=== PATIENT | female | born 1985 | race Caucasian/White ===

== ENCOUNTER 2018-07-03 10:34 | Day surgery (SDC) | payer BC, MEDICAID, SELFPAY ==
[2018-06-27 10:37] VITALS: BMI 24.7
[2018-07-03] VITALS (7 sets, daily range): BP systolic 108–116; BP diastolic 69–87; PULSE 70–84; RESP 16; TEMP 36–36.7; O2SAT 94–100; BMI 25.1
--- NOTE | 2018-07-03 10:42 | EKG12_ITS ---
Test Reason : PRE-OP Blood Pressure : / mmHG Vent. Rate : 069 BPM Atrial Rate : 069 BPM P-R Int : 152 ms QRS Dur : 084 ms QT Int : 404 ms P-R-T Axes : 058 061 033 degrees QTc Int : 432 ms Normal sinus rhythm Normal ECG No previous ECGs available Confirmed by MANE EGAN ([id number]), web content editor BOBY JEREZ ([id number]) on 07/08/2018 2:42:08 PM Referred By: Kwaku Gayle Confirmed By:JENNIFER EGAN
--- NOTE | 2018-07-03 11:45 | PCM.DC.GS ---
Discharge Diet: Light diet - advance as tolerated - if you have questions about your diet instructions, please talk to you doctor. Discharge Activity: May Not Drive - for 3-5 days or while taking narcotic pain medicine. May shower in (days): 1 Lifting Restrictions: 10 pounds Call your doctor if your incision/area has: Continuous Slow Oozing, Sudden Increased Bleeding, Increased Pain/ Swelling, Increased Redness, Foul Smelling Discharge Call your doctor if you observe: Fever of 101 or Higher Suture Line Care: Avoid Pulling/Pushing, Avoid Pinching/Bending Additional Dressing/Incision Instructions:: Change or remove dressing in 4 days. Leave steri-strips in place for 1 week. Allergies/Adverse Reactions: Allergies lamotrigine [From Lamictal] Allergy (Unknown, Verified 07/01/18 08:13) Unknown Medications to take at Discharge ibuprofen 600 mg tablet 600 mg PO BID PRN tab 06/27/18 Hydrocodone Bitart/Apap 5-325 [[place] 5MG-325MG] 1 tablet PO Q4H PRN PRN 3 Days #10 tablet 07/03/18 The following prescriptions were given: Hydrocodone Bitart/Apap 5-325 [[place] 5MG-325MG] 1 tablet PO Q4H PRN PRN 3 Days #10 tablet PRN Reason: Pain Primary Care Physician: Renae Taylor NP-C [Primary Care Provider] - Test Results: Test results from this visit will be discussed in further detail at your follow-up appointment, if applicable. Please Follow Up With: Kwaku Gayle MD - [phone] When: Call to make an appointment to be seen in about 10 days.
[2018-07-03] MEDS: Cefazolin 2 GM in 0.9% Normal Saline 100 ML IV (11:56)
--- NOTE | 2018-07-03 12:10 | RAD_ITS ---
PROCEDURE: FLUOROSCOPY ASSISTANCE DATE OF EXAMINATION: 07/03/2018 INDICATION: Female, 33 years old. Intraoperative cholangiogram. FLUOROSCOPY TIME (if supplied): (0:06) minutes/seconds. 29 images. RADIATION DOSAGE (If Supplied By Facility): Please see attached dosage report. IMPRESSION/FINDINGS: Images depict filling of the biliary tree via the cystic duct after cholecystectomy. There is no visible retained calculus. Slender duct through the sphincter, with normal spillage into the small bowel. Fluoroscopic images submitted to PACS for procedural/postsurgical documentation Please see procedural/surgical note Radiologist not present at the time of examination Electronically Signed: Donavan Magaña MD at 15:25 EDT Tel , Service support , RAD/Cholangiogram/ O R,Initial
--- NOTE | 2018-07-03 12:30 | GALL_PTH ---
PATIENT: ANUJA CASTILLO [place] [facility] [place][id number] AGE/SX: 33/F ROOM: RE07/03/[address]: Dr. Kwaku Gayle MD : [id number] BED: DIS: 07/03/2018 SPEC #: [id number] RECD: 07/03/18 16:17 STATUS: YANG PABLO #: [id number] BARBARA: 07/03/18 12:[address]: Kwaku Gayle DEPT: SURGICAL PATHOLOGY RECD BY: Pelon Mukherjee ENTERED: 07/04/18 11:17 SP TYPE: STEPHANIE RAMOS DR: Renae Taylor, NEHEMIAS Tissues: Gallbladder, NOS Procedures: Surgery Specimen Level III HEADER OPERATION: Laparoscopic cholecystectomy with IOC PRE-OP DIAGNOSIS: Calculus of gallbladder, chronic cholecystitis without obstruction, cholelithiasis TISSUE SUBMITTED: Gallbladder MICROSCOPIC DIAGNOSIS Gallbladder, cholecystectomy: Mild chronic cholecystitis. No stones are identified in the container or in the gallbladder. COLETTE:carly 07/05/18 MICROSCOPIC DESCRIPTION Slides are reviewed. GROSS DESCRIPTION Received is one container labeled with the patient's name and designated gallbladder. The specimen consists of a gallbladder measuring 7 cm in length and 3.5 cm in diameter. The external surface is pink-mccarthy, smooth and glistening for the most part. Focally it is granular, hemorrhagic and contains cautery artifact. The gallbladder contains green-yellow mucoid bile and a small amount of sludge material. No stones are identified in the container or in the gallbladder. The mucosa is bile-stained and without any mass lesions. The gallbladder wall measures 0.1 cm in thickness. Special Loan Officer sections from the gallbladder and the cystic duct are submitted in one cassette. / COLETTE:carly 07/04/18 TC:3 CPT: 70748
[2018-07-03] MEDS: Bupivacaine 0.5% PF 10 ML VIAL (13:15)
--- NOTE | 2018-07-03 13:24 | PCM.OPRPT ---
Problem List (1) Cholelithiasis with chronic cholecystitis Status: Chronic Qualifiers: Cholelithiasis location: gallbladder Biliary obstruction: without biliary obstruction Qualified Code(s): K80.10 - Calculus of gallbladder with chronic cholecystitis without obstruction Report of Operation Date of Procedure: 07/03/18 Pre-Operative Diagnosis: Chronic cholecystitis cholelithiasis Post-Operative Diagnosis: Same Surgery/Procedure Performed:: Laparoscopic cholecystectomy with cholangiograms Description of Surgical Findings:: Timeout and informed consent was obtained. 33-year-old female was taken the operating placed when table underwent general endotracheal intubation anesthesia. Ancef 2 g were given intravenously preoperatively. The abdomen sterilely prepped and draped. 0.5% Marcaine was used as local anesthetic. Throughout the procedure a total of 30 cc was used. Skin sites were pre-anesthetized. The patient had a previous infraumbilical incision at the umbilicus. The skin scar was elliptically completely excised inspected and after inspection was discarded his skin scar. Holding sutures were placed in the fascia the fascia was elevated sharp dissection carried down through the fascia the peritoneum was directly identified direct access was gained through the peritoneum and then a 10 window trocar was inserted. The abdomen was insufflated with CO2 to a pressure of 10 mmHg pressure. 5-minute trochars were placed in the epigastrium mid abdomen and right upper quadrant. Inspection revealed a very small right inguinal hernia. There were adhesions of omentum to the gallbladder. These had to be dissected free with electrocautery. Then the gallbladder was distracted and blunt dissection was sent to the infundibulum until clearly the critical view was achieved. The cystic artery was clipped proximally and distally with him a lot closed by transecting it. Hemoclips were placed on the cystic duct stump incision in the cystic duct and through a 14-gauge Angiocath and cholangiogram catheter was inserted. Fluoroscopically controlled clench grams were obtained demonstrating normal ductal anatomy and free flow into the small bowel. The claims Faustino cath was removed and 2 hemoclips were placed on the cystic duct stump prior to transecting it. The gallbladder was then dissected free from the liver bed. Careful attention to hemostasis was achieved. Fibrillar was then placed in the base of the liver bed to further assure hemostasis. The gallbladder was placed in a retrieval bag and exited at the umbilicus. The right upper quadrant was irrigated and aspirated free of excess fluid. The liver bed was noted to be hemostatic. The cystic duct clips intact nicely. The remaining trochars removed under visualization. The fascia at the umbilicus was approximated with interrupted 0 Vicryl [id number] suture. Skin edges were approximated interrupted 4-0 Monocryl subdermal stitches. Steri-Strips Telfa and OpSite dressings applied. Sponge and instrument and needle counts were reported to the surgeon for correct. Specimen gallbladder. Drains none. Blood loss minimal. The patient was taken to the recovery area in satisfactory condition without apparent complication. Kwaku Gayle M.D., F.A.C.S. Type of Anesthesia:: General Anesthesiologist: Maninder Ruano
--- NOTE | 2018-07-03 13:28 | OP.PCM_ITS ---
Problem List (1) Cholelithiasis with chronic cholecystitis Status: Chronic Qualifiers: Cholelithiasis location: gallbladder Biliary obstruction: without biliary obstruction Qualified Code(s): K80.10 - Calculus of gallbladder with chronic cholecystitis without obstruction Report of Operation Date of Procedure: 07/03/18 Pre-Operative Diagnosis: Chronic cholecystitis cholelithiasis Post-Operative Diagnosis: Same Surgery/Procedure Performed:: Laparoscopic cholecystectomy with cholangiograms Description of Surgical Findings:: Timeout and informed consent was obtained. 33-year-old female was taken the operating placed when table underwent general endotracheal intubation anesthesia. Ancef 2 g were given intravenously preoperatively. The abdomen sterilely prepped and draped. 0.5% Marcaine was used as local anesthetic. Throughout the procedure a total of 30 cc was used. Skin sites were pre-anes thetized. The patient had a previous infraumbilical incision at the umbilicus. The skin scar was elliptically completely excised inspected and after inspection was discarded his skin scar. Holding sutures were placed in the fascia the fascia was elevated sharp dissection carried down through the fascia the peritoneum was directly identified direct access was gained through the peritoneum and then a 10 window trocar was inserted. The abdomen was insufflated with CO2 to a pressure of 10 mmHg pressure. 5-minute trochars were placed in the epigastrium mid abdomen and right upper quadrant. Inspection revealed a very small right inguinal hernia. There were adhesions of omentum to the gallbladder. These had to be dissected free with electrocautery. Then the gallbladder was distracted and blunt dissection was sent to the infundibulum until clearly the critical view was achieved. The cystic artery was clipped proximally and distally with him a lot closed by transecting it. Hemoclips were placed on the cystic duct stump incision in the cystic duct and through a 14- gauge Angiocath and cholangiogram catheter was inserted. Fluoroscopically controlled clench grams were obtained demonstrating normal ductal anatomy and free flow into the small bowel. The claims Faustino cath was removed and 2 hemoclips were placed on the cystic duct stump prior to transecting it. The gallbladder was then dissected free from the liver bed. Careful attention to hemostasis was achieved. Fibrillar was then placed in the base of the liver bed to further assure hemostasis. The gallbladder was placed in a retrieval bag and exited at the umbilicus. The right upper quadrant was irrigated and aspirated free of excess fluid. The liver bed was noted to be hemostatic. The cystic duct clips intact nicely. The remaining trochars removed under visualization. The fascia at the umbilicus was approximated with interrupted 0 Vicryl [id number] suture. Skin edges were approximated interrupted 4-0 Monocryl subdermal stitches. Steri-Strips Telfa and OpSite dressings applied. Sponge and instrument and needle counts were reported to the surgeon for correct. Specimen gallbladder. Drains none. Blood loss minimal. The patient was taken to the recovery area in satisfactory condition without apparent complication. Kwaku Gayle M.D., F.A.C.S. Type of Anesthesia:: General Anesthesiologist: Maninder Ruano
[2018-07-03] MEDS: HYDROcodone Bitartrate/Apap 5/325 Tablet PO (14:57)
[2018-07-03] MEDS: Ondansetron 4 MG/2 ML Vial IV (16:38)
[2018-07-06 08:52] LABS: Fats, Neutral Normal (.); Fats, Total Normal (.)
== END 2018-07-03 16:49 | disposition home or self-care (01) ==
LOC: SDC 10:37 → AC 10:37
PROVIDERS: Family Provider Nurse Practitioner Family; PCP Nurse Practitioner Family; Referring Provider Surgery; Visit Provider Surgery
PROC: (CPT 47610; principal; 2018-07-03 12:10)
DX: K80.10 Calculus of gallbladder with chronic cholecystitis without obstruction (principal); K58.9 Irritable bowel syndrome, unspecified; F17.210 Nicotine dependence, cigarettes, uncomplicated
CPT/HCPCS: 47563; 74300; 76000; 82705; 87177; 87209; 87506; 88304; 93005; J7120; A4216; J2405

== ENCOUNTER → 2018-07-18 09:25 | Outpatient (CLI) | payer BC, MEDICAID, SELFPAY ==
--- NOTE | 2018-07-18 09:29 | NM_ITS ---
We are attempting to reach an attending provider to discuss findings. An addendum with communication details will be sent when the communication is complete. CLINICAL: 33-year-old female with history of recent cholecystectomy with postoperative pain and suspected bile leak. RADIONUCLIDE HEPATOBILIARY SCINTIGRAPHY COMPARISON: None available FINDINGS: Following the intravenous administration of 5.6 mCi of 99m Tc Mebrofenin, hepatobiliary images reveal: 1. Relatively prompt and homogeneous radiopharmaceutical concentration is noted by a normal sized liver. No parenchymal defects are identified. 2. Gallbladder activity is not identified during 60 minutes of sequential imaging commensurate with known history of prior cholecystectomy. 3. Small intestinal tract is observed at 11-12 minutes post radiopharmaceutical administration. 4. Washout of the radiopharmaceutical by the hepatic parenchyma appears qualitatively normal. 5. There is no evidence of a visualized bile leak identified during 60 minutes of sequential imaging. 6. duodenal-gastric reflux is demonstrated at approximately 12 minutes following tracer injection. NM/Hepatobilliary Imaging IMPRESSION: 1. Nonvisualization of the gallbladder is consistent with prior cholecystectomy. 2. There is no scintigraphic evidence of bile leak as defined above. 3. Duodenal-gastric reflux is defined at approximately 12 minutes following tracer injection and appears sustained during the course of remaining image acquisition. Electronically Signed: Donavan Pizarro DO at 11:11 EDT Tel , Service support ,
--- OUTSIDE RECORDS SUMMARY | 2018-07-18 10:02 | XMS RPT_ITS | CCD ---
:1985 External Reference #:[id number] Author Organization [facility] Care Team Providers Name Role Phone Unavailable Unavailable Unavailable Allergies Reported Allergen Reaction(s) Severity Date of Onset Location lamoTRIgine Rash 03-30-2010 - [facility] (57230) lamoTRIgine Translations: [facility] [ [facility]] [facility] Repository Mirtazapine 06-30-2009 - [facility] (00351) Medications Medication Name Sig Date Prescriber Location Albuterol albuterol 108 (90 06-06-2018 Historical Provider [facility] Base) MCG/ACT Aero (85947) Soln inhaler INHALE 1 TO 2 PUFFS EVERY 4 HOURS NEEDED 0 06/06/2018 Active albuterol 108 (90 Base) MCG/ACT 06-06-2018 Historical Provider [facility] (23620) Aero Soln inhaler INHALE 1 TO 2 PUFFS EVERY 4 HOURS NEEDED 0 06/06/2018 Active Azithromycin azithromycin 250 MG Tab tablet TAKE 2 06-06-2018 [facility] (44593) TABLETS by mouth NOW, THEN 1 TABLET once a day FOR 4 DAYS 0 06/06/2018 Active azithromycin 250 MG Tab tablet TAKE 2 TABLETS by 06-06-2018 [facility] (33667) mouth NOW, THEN 1 TABLET once a day FOR 4 DAYS 0 06/06/2018 Active benzonatate benzonatate 200 MG Cap capsule TAKE 1 06-06-2018 [facility] (35367) CAPSULE BY MOUTH THREE TIMES DAILY NEEDED for cough 0 06/06/2018 Active benzonatate 200 MG Cap capsule TAKE 1 CAPSULE BY 06-06-2018 [facility] (01994) MOUTH THREE TIMES DAILY NEEDED for cough 0 06/06/2018 Active methylPREDNISolone methylPREDNIsolone 4 MG 06-07-2018 Nekst Tab Therapy Pack tablet [place] (97256) Take as directed PO 21 tablet 0 06/07/2018 Active methylPREDNIsolone 4 MG Tab Therapy 06-07-2018 [facility] (34730) Pack tablet Take as directed PO 21 tablet 0 06/07/2018 Active Problems Category Problem Name Status Date Location Chronic obstructive pulmonary Bronchitis Active 06-07-2018 [facility] disease and bronchiectasis (54930) Viral infection Viral disease Active 06-08-2018 [facility] (27789) Results Result Name Value Range Unit Interpretation Flag Date Location auto diff on 2018-06-12 Basophils #/vol (Bld) 0.1 0.0-0.2 E3/mcL Normal 06-12-2018 [facility] (23619) Comment: Order Comment: Order Added by Discern Expert. Performed By: #### [id number] #### [facility] [address] [place] [address] Basophils/100 WBC (Bld) 0.8 0.0-2.0 % Normal 06-12-2018 [facility] (40191) Comment: Order Comment: Order Added by Discern Expert. Performed By: #### [id number] #### [facility] [address] Eos Absolute 0.1 0.0-0.7 E3/mcL Normal 06-12-2018 [facility] (72162) Comment: Order Comment: Order Added by Discern Expert. Performed By: #### [id number] #### ELDER RemHemo [address] [place] [address] Eosinophils/100 WBC (Bld) 1.0 0.0-11.0 % Normal 06-12-2018 [facility] (79222) Comment: Order Comment: Order Added by Discern Expert. Performed By: #### [id number] #### ELDER RemHemo [address] [place] [address] 28414 Lymphocytes #/vol (Bld) 6.1 1.2-3.4 E3/mcL High 06-12-2018 [facility] (61999) Comment: Order Comment: Order Added by Discern Expert. Performed By: #### [id number] #### ELDER RemHemo [address] [place] [address] 03932 Lymphocytes/100 WBC (Bld) 43.4 20.0-55.0 % Normal 06-12-2018 [facility] (07917) Comment: Order Comment: Order Added by Discern Expert. Performed By: #### [id number] #### ELDER AranaHemo [address] [place] [address] [place]fe Absolute 0.7 0.0-0.7 E3/mcL Normal 06-12-2018 [facility] (60268) Comment: Order Comment: Order Added by Discern Expert. Performed By: #### [id number] #### [facility] [place] [id number] Monocytes/100 WBC (Bld) 5.3 0.0-10.0 % Normal 06-12-2018 [facility] (17982) Comment: Order Comment: Order Added by Discern Expert. Performed By: #### [id number] #### [facility] [place] [address] Neutro Absolute 7.0 1.4-6.5 E3/mcL High 06-12-2018 [facility] (84442) Comment: Order Comment: Order Added by Discern Expert. Performed By: #### [id number] #### [facility]ER [facility] [address] [place] [address] Neutro Auto 49.5 37.0-75.0 % Normal 06-12-2018 [facility] (22717) Comment: Order Comment: Order Added by Discern Expert. Performed By: #### [id number] #### ELDER Andersono [address] [place], [place] [id number] us abdomen, limited on 2018-06-18 US Abdomen, Exam Date/Time: Normal 06-18-2018 [facility] Limited 06/18/2018 08:46 [facility] Reason for Exam: ([id number]) RUQ PAIN ATTN: GB;Abdominal pain Report STUDY: US Abdomen, Limited; 06/18/2018 8:46 am INDICATION: Abdominal pain. COMPARISON: None. ACCESSION NUMBER(S): [id number] ORDERING CLINICIAN: Renae Taylor TECHNIQUE: Grayscale and color Doppler ultrasound evaluation of the right upper quadrant. FINDINGS: LIVER: Normal size. Normal echogenicity and contour. No focal abnormality. GALLBLADDER: Gallbladder is distended. There are mobile gallstones. No wall thickening or pericholecystic fluid. No focal tenderness is reported during scanning directly over the gallbladder. BILIARY TREE: No intra- or extrahepatic biliary dilatation. The extrahepatic bile duct measures 3 mm. PANCREAS: The visualized head and neck are within normal limits. The body and tail are obscured by shadowing from bowel gas. RIGHT KIDNEY: Normal size, no hydronephrosis. PERITONEUM: No ascites. IMPRESSION: Exam Date/Time: 06/18/2018 08:46 EDT Report Gallstones. No intra or extrahepatic biliary ductal dilatation. FINAL REPORT Dictated: 06/18/2018 10:05 am Elier Munoz MD Signed (Electronic Signature): 06/18/2018 10:05 am Signed by: Elier Munoz MD Technologist: ANU egfr on 2018-06-12 GFR/1.73 sq M predicted >60 mL/min/{1.73_m2} Normal 06-12-2018 [facility] among non-blacks MDRD [facility] (61980) vol rate/area (S/P/Bld) Comment: Order Comment: Order added by Discern Expert. Performed By: #### [id number] #### ELDER RemChem [address] [place] [id number] d-dimer on 2018-06-12 D-Dimer <215.00 <=500.00 Normal 06-12-2018 [facility] (67094) Comment: Result Comment: When the concentration of D-dimer is below the cotton weigher operator's cutoff, 500 ng/mL FEU, it may be possible to exclude the diagnosis of DVT and PE in conjunction with a clinical pretest probability assessment. Performed By: #### [id number] #### ELDER RemHemo [address] [place] [id number] cta chest on 2018-06-12 CTA Chest Exam Date/Time: Normal 06-12-2018 [facility] 06/12/2018 20:44 EDT Health System (93055) Reason for Exam: Pulmonary Emboli (PE) Report STUDY: CTA Chest; 06/12/2018 8:44 pm INDICATION: Pulmonary Emboli (PE). COMPARISON: None. ACCESSION NUMBER(S): [id number] ORDERING CLINICIAN: Quentin Rivas TECHNIQUE: Helical data acquisition of the chest was obtained contrast volume:without IV contrast material/ Optiray 350/Isovue 370. Images were reformatted in axial, coronal, and sagittal planes. FINDINGS: POTENTIAL LIMITATIONS OF THE STUDY:None HEART AND VESSELS: There is no pulmonary embolus. The heart is normal size and configuration. There is no evidence of ventricular heart strain. There is no pericardial effusion. The aorta is within normal limits. MEDIASTINUM AND CASPER, LOWER NECK AND AXILLA: The visualized thyroid gland is within normal limits. No evidence of thoracic lymphadenopathy by CT criteria. Esophagus appears within normal limits as seen. LUNGS AND AIRWAYS: The trachea and central airways are patent. No endobronchial lesion. Lungs are clear. There is a calcified granuloma in the left upper lobe. UPPER ABDOMEN: The visualized subdiaphragmatic structures demonstrate no remarkable findings. CHEST WALL AND OSSEOUS STRUCTURES: There are no suspicious osseous lesions. Multilevel degenerative changes are present IMPRESSION: Exam Date/Time: 06/12/2018 20:44 EDT Report No pulmonary embolus. No focal airspace disease. FINAL REPORT Dictated: 06/12/2018 8:46 pm Nathaniel Lunsford MD Signed (Electronic Signature): 06/12/2018 8:46 pm Signed by: Nathaniel Lunsford MD Technologist: NATALYA cbc w/ auto diff on 2018-06-12 Erythrocyte distribution 13.2 11.5-14.5 % Normal 06-12-2018 [facility] width Ratio (RBC) Health System (85938) Comment: Performed By: #### [id number] #### ELEDR RemHemo [address] [place] [id number] Hematocrit Volume Fraction 41.5 36.0-48.0 % Normal 06-12-2018 [facility] (69127) Comment: Performed By: #### [id number] #### ELDER RemHemo [address] [place] [address] Hemoglobin mass conc 14.2 12.0-16.0 G/DL Normal 06-12-2018 [facility] (09877) Comment: Performed By: #### [id number] #### ELDER RemHemo [address] [place] [address] MCH Entitic mass (RBC) 31.2 27.0-31.0 pg High 06-12-2018 [facility] (55066) Comment: Performed By: #### [id number] #### ELDER RemHemo [address] [place] [address] MCHC mass conc (RBC) 34.3 33.0-37.0 G/DL Normal 06-12-2018 [facility] (51748) Comment: Performed By: #### [id number] #### ELDER YasmeenHemo [address] [place] [id number] MCV Entitic volume 90.8 78.0-100.0 fL Normal 06-12-2018 [facility] (RBC) System (85468) Comment: Performed By: #### [id number] #### ELDER RemHemo [address] [place] [id number] Platelet mean volume 8.5 7.4-11.0 fL Normal 06-12-2018 [facility] Entitic volume (Bld) System (91391) Comment: Performed By: #### [id number] #### ELDER YasmeenHemo [facility] [place] [address] Platelets #/vol (Bld) 232 130-400 E3/mcL Normal 06-12-2018 [facility] (49059) Comment: Performed By: #### [id number] #### ELDER RemHemo [address] [place] [id number] RBC #/vol (Bld) 4.57 3.90-5.40 E6/mcL Normal 06-12-2018 [facility] (25858) Comment: Performed By: #### [id number] #### ELDER RemHemo [address] [place] [address] WBC #/vol (Bld) 14.1 3.6-11.0 E3/mcL High 06-12-2018 [facility] (49824) Comment: Performed By: #### [id number] #### ELDER RemHemo [address] [place] [address] bmp on 2018-06-12 Anion gap molar conc 10 10-20 mEq/L Normal 06-12-2018 [facility] (88626) Comment: Performed By: #### [id number] #### ELDER RemChem [address] [place] [id number] Calcium mass conc 9.3 8.6-10.3 mg/dL Normal 06-12-2018 [facility] (98198) Comment: Performed By: #### [id number] #### ELDER [facility] [address] [place] [address] Chloride molar conc 105 98-107 mEq/L Normal 06-12-2018 [facility] (19535) Comment: Performed By: #### [id number] #### ELDER [facility] [address] [place] [address] CO2 molar conc 27.0 21.0-32.0 mEq/L Normal 06-12-2018 [facility] (63984) Comment: Performed By: #### [id number] #### ELDER [facility] [address] [place] [address] Creatinine mass conc 0.9 0.5-1.1 mg/dL Normal 06-12-2018 [facility] (50304) Comment: Performed By: #### [id number] #### ELDER [facility] [address] [place] [address] Glucose mass conc 92 70-99 mg/dL Normal 06-12-2018 [facility] (28242) Comment: Performed By: #### [id number] #### ELDER [facility] [address] [place] [address] Potassium molar conc 3.4 3.5-5.3 mEq/L Low 06-12-2018 [facility] (10064) Comment: Performed By: #### [id number] #### ELDER [facility] [address] [place] [address] Sodium molar conc 139 136-145 mEq/L Normal 06-12-2018 [facility] (61877) Comment: Performed By: #### [id number] #### ELDER [facility] [address] [place] [address] Urea nitrogen mass conc 17 6-23 mg/dL Normal 06-12-2018 [facility] (91066) Comment: Performed By: #### [id number] #### ELDER [facility] [address] [place] [address] Urea nitrogen/Creatinine mass 18.9 5.4-30.0 ratio Normal 06-12-2018 [facility] (54465) Comment: Performed By: #### [id number] #### ELDER [facility] [address] [place] [address] rapid flu a on 2018-06-08 INFLUENZA A NEGATIVE NEGATIVE Normal 06-08-2018 [facility] (14388) Comment: Performed By: #### RFLUAB #### Testing performed at [address] [address] INFLUENZA B NEGATIVE NEGATIVE Normal 06-08-2018 [facility] (93925) Comment: Result Comment: TESTING PERFORMED BY SAROJ Performed By: #### RFLUAB #### Testing performed at [address] [address] No panel information on 2018-06-08 FLUBV Ag IA Ql (Unsp spec) NEGATIVE NEGATIVE 06-08-2018 [facility] (77374) Comment: TESTING PERFORMED BY SAROJ INFLUENZA A NEGATIVE NEGATIVE 06-08-2018 [facility] (64654) xr chest pa and lateral on 2018-06-07 XR CHEST PA AND EXAM: XR CHEST PA AND LATERAL Normal 06-07-2018 [facility] LATERAL REASON FOR EXAM: Female, 33 years, pain with breathing. Hospital (87485) TECHNIQUE: PA and lateral views of the chest are performed. COMPARISON: None. FINDINGS: The lungs are expanded and clear. Normal pleura. There is a small calcified nodule in the retrosternal space measuring 8 mm. Normal size heart. Normal mediastinum and casper. Normal visualized pulmonary arteries. Normal visualized aortic arch and descending thoracic aorta. Normal visualized thoracic spine. Normal visualized ribs, clavicles, and shoulders. There is no demonstrated abnormality of the visualized soft tissue structures of the upper abdomen. IMPRESSION: 8 mm noncalcified nodule in the retrosternal space. No additional abnormality. No panel information on 2018-06-07 User, Interfaces - 06/07/2018 8:26 PM EDT EXAM: XR CHEST PA AND LATERAL 06-07-2018 [facility] (52332) REASON FOR EXAM: Female, 33 years, pain with breathing. TECHNIQUE: PA and lateral views of the chest are performed. COMPARISON: None. FINDINGS: The lungs are expanded and clear. Normal pleura. There is a small calcified nodule in the retrosternal space measuring 8 mm. Normal size heart. Normal mediastinum and casper. Normal visualized pulmonary arteries. Normal visualized aortic arch and descending thoracic aorta. Normal visualized thoracic spine. Normal visualized ribs, clavicles, and shoulders. There is no demonstrated abnormality of the visualized soft tissue structures of the upper abdomen. IMPRESSION IMPRESSION: 8 mm noncalcified nodule in the retrosternal space. No additional abnormality. EXAM: XR CHEST PA AND LATERAL REASON FOR 06-07-2018 [facility] (71526) EXAM: Female, 33 years, pain with breathing. TECHNIQUE: PA and lateral views of the chest are performed. COMPARISON: None. FINDINGS: The lungs are expanded and clear. Normal pleura. There is a small calcified nodule in the retrosternal space measuring 8 mm. Normal size heart. Normal mediastinum and casper. Normal visualized pulmonary arteries. Normal visualized aortic arch and descending thoracic aorta. Normal visualized thoracic spine. Normal visualized ribs, clavicles, and shoulders. There is no demonstrated abnormality of the visualized soft tissue structures of the upper abdomen. IMPRESSION: 8 mm noncalcified nodule in the 06-07-2018 [facility] (51136) retrosternal space. No additional abnormality. Vital Signs Vital Sign Description Value / Unit Date Location The following section is limited to 5 entries per type and includes entries from the following time range: 20180608 - 20180608. Body Temperature 98.71 [degF] 06-08-2018 [facility] (56100) Pulse (Heart Rate) 100 /min 06-08-2018 [facility] (14655) Pulse Oximetry 96 % 06-08-2018 [facility] (32475) Respiratory Rate 14 /min 06-08-2018 [facility] (72506) Encounters Date Type Reason Provider Location 06-12-2018 - Emergency [facility] Facility:[facility] 06-12-2018 department [facility] visit Farooqblanco Trivedi 06-08-2018 - [facility] patient [facility] Hospital (65509) visit 06-08-2018 - [facility] patient Emergency visit Department 06-07-2018 - Letter encounter Provider [facility] 06-07-2018 [facility] 06-24-2018 - Patient encounter Renae August Facility:[place] 06-25-2018 procedure [facility] 06-18-2018 - Patient encounter [facility] Facility:[facility] 06-19-2018 procedure [facility] 06-18-2018 Patient encounter Facility:9509 procedure 06-12-2018 Patient encounter Facility:9509 procedure 06-11-2018 - Patient encounter Renae [place] Facility:[place] 06-12-2018 procedure [facility] 06-07-2018 Patient encounter BENJAMIN Doming[facility] procedure [facility] (99477) 06-07-2018 - Patient encounter Bronchitis [facility] 06-07-2018 procedure BENJAMIN Doming[facility] [place] Comment: Arrived Procedures Procedure Name Date Provider Location INFLUENZA A AND B, [facility] of chest, 06-08-[address] [facility] (22285) combined PA and lateral Plan of Treatment Plan Description Date Location INFLUENZA VACCINE INFLUENZA VACCINE 11-03-2018 - [facility] (90892) (Season Ended) (Season Ended) 2018 PAP SMEAR DISCUSSION PAP SMEAR DISCUSSION 2006 - [facility] (12575) 2006 TDAP (ADULT) TDAP (ADULT) 01-23-2004 - [facility] (49140) 01-23-2004 TETANUS TETANUS 2003 - [facility] (48297) 2003 HIV SCREENING HIV SCREENING DISCUSSION 1998 - [facility] (77980) DISCUSSION 1998 The following information is from the original human readable content Health Maintenance Due Date Last Done Comments HIV SCREENING DISCUSSION 1998 TETANUS 2003 TDAP (ADULT) 01/23/2004 PAP SMEAR DISCUSSION 2006 INFLUENZA VACCINE (Season Ended) 2018 Health Maintenance Due Date Last Done Comments HIV SCREENING DISCUSSION 1998 TETANUS 2003 TDAP (ADULT) 01/23/2004 PAP SMEAR DISCUSSION 2006 INFLUENZA VACCINE (Season Ended) 2018 Payers Payer Name Policy Number Location LEENA xxxxxxxxxxxx CHIKA CASTILLO [facility] (48038) ANTHEM HMO PPO POS [id number] [facility] (22512) [employer]ES[employer] [id number] [facility] (18108) CARESOURCE xxxxxxxxxxx Chika Castillo [id number] [facility] (53605) [id number] [facility] (63470) [id number] [facility] (66366) [id number] [facility] (93096) [id number] [facility] (04399) [id number] [facility] (49049) [id number] [facility] (99553) [id number] [facility] (82026) [id number] [facility] (44210) The following information is from the original human readable content Payer Benefit Plan / Group Subscriber ID Effective Dates Phone Address Type LEENA ANTHEM HMO PPO POS xxxxxxxxxxxx 2018-Present [employer]ESOURCE CARESOURCE xxxxxxxxxxx 2018-Present Payer Benefit Plan / Group Subscriber ID Effective Dates Phone Address Type LEENA STERN HMO PPO POS xxxxxxxxxxxx 2018-Present [employer]OURCE xxxxxxxxxxx 2018-Present Payer Benefit Plan / Group Subscriber ID Effective Dates Phone Address Type ANTHJUAN MANUEL STERN HMO PPO POS xxxxxxxxxxxx 2018-Present [employer] CAR[employer]OURCE xxxxxxxxxxx 2018-Present ENCOUNTER GUARANTOR PAYER SUBSCRIBER SOURCE 06/08/2018 CHIKA PETTYDOB: Primary CHIKA PETTYDOB: [facility] Insurance:LEENA [id number] ([place]) [facility] [place] [place] Number: [place], [place] [address]Axf: (924) [id number]: (HP) yonatan [phone] (HP) Date:[id number] n Name:MANAGED CARE 06/08/2018 Secondary CHIKA PETTYDOB: [facility] Insurance:CARESOUR [id number] ([place]) Repository CEPolicy Number: NIGEL [id number] [place], [place] [address]Wdp: (513) Date:5209-32-83Lvv [phone] (HP) n Name:ANGELIA 06/07/2018 CHIKA PETTYDOB: Primary CHIKA PETTYDOB: [facility] Insurance:ANTH [id number] ([place]) [facility] [place] [place] Number: [place], [place] [address]Ioc: ([phone]) [id number] [id number]: (HP) yonatan [phone] (HP) Date:6702-66-27Hmk n Name:MANAGED CARE 06/07/2018 Secondary CHIKA PETTYDOB: [facility] Insurance:CARESOUR [id number] ([place]) Repository CEPolicy Number: NIGEL [id number] [place], [place] [address]Rwr: (513) Date:2420-61-78Dtz [phone] (HP) n Name:ANGELIA ENCOUNTER GUARANTOR PAYER SUBSCRIBER SOURCE 06/18/2018 CHIKA PETTYDOB: Primary CHIKA PETTYDOB: [facility] [id number] [facility] Number: [place], [place] [id number] [place] [id number]: [id number]: yonatan Date:Plan (HP) Name:Health () 06/18/2018 Secondary CHIKA PETTYDOB: [place] [facility] [id number] Hospitals cePolicy Number: [facility] TRAVIS [id number] [place] [id number]: ve Date:Plan (HP) Name:[address] [place] [address] [id number]: 06/12/2018 CHIKA PETTYDOB: Primary CHIKA PETTYDOB: [place] Insurance:[facility] [id number] [facility] Number: NIGEL COX, Jesika [place], [place] [id number] [place] [id number]: [phone]: yonatan Date:Plan (HP) Name:Health () 06/12/2018 Secondary CHIKA PETTYDOB: [place] Insurance:[facility] [id number] [facility] cePolicy Number: [facility] [id number] [place] [id number]: ve Date:Plan (HP) Name:[address] [place] [address] [id number]: ENCOUNTER GUARANTOR PAYER SUBSCRIBER SOURCE 06/24/2018 CHIKA R PETTYDOB: Primary CHIKA R PETTYDOB: [facility] [id number] [facility] Number: Effective [place], [place] Date:2018-06-18 [place] [address]Ijz: [id number] [id number]: Name:[facility] (HP) [address]TRBVFRJ, ()Tel: (422) [place] [phone]: (wp) [phone] 06/24/2018 Secondary CHIKA R PETTYDOB: [facility] Insurance[facility] [id number] [facility] MCAIDPolicy Number: [facility] Effective [place], [place] Date:2018-06-1806-181009Tel: [id number] Name:CD:[id number] (HP)Tel: (000) [address] [place] [address] 000-0000 (WP) [phone]: 06/18/2018 CHIKA R PETTYDOB: Primary CHIKA R PETTYDOB: [facility] [id number] Health System GUAYAMA cy Number: Effective NGIEL Repository [place], [place] Date:2018-06-13 - [place] [address]Dhm: [id number] [id number]: Name:Gunner Duenas (HP) [address]KMWXC[address], (HP)Tel: (000) [place] [address]RY: (WP) [phone] 06/18/2018 Secondary CHIKA R PETTYDOB: [facility] Insurance:[employer]OURCE [id number] MCAIDPolicy Number: NIGEL Repository Effective [place], [place] Date:2018-06-136[address]Nbu: [id number] Name:CD:[id number] (HP)Tel: (000) [address] [place] [address] 000-0000 (WP) [phone]: 06/12/2018 CHIKA R PETTYDOB: Primary CHIKA R PETTYDOB: [facility] [id number] cy Number: Effective [place] Repository [place], [place] Date:2018-06-12 - [place] [address]Fkk: [id number] [phone]: Name:Gunner Duenas (HP) [address], (HP)Tel: (000) [place] [address]AZ: (WP) [phone] 06/12/2018 Secondary CHIKA R PETTYDOB: [facility] Insurance:[facility] [id number] [facility] MCAIDPolicy Number: NIGEL Repository Effective [place], [place] Date:2018-06-12 [id number]: [id number] Name:[id number] (HP)Tel: (000) [address] [place] [address] [phone] (WP) [phone]: 06/11/2018 CHIKA R PETTYDOB: Primary CHIKA R PETTYDOB: [facility] Insurance:[facility] [id number] [facility] NIGEL Severino: Repository Effective (HP) Date:2018-06-11 (HP)Tel: [id number] [phone] (WP) Name:[id number] [address] [address]HJ: 06/11/2018 Secondary CHIKA R PETTYDOB: [facility] Insurance:[facility] [id number] [place] [address]: Repository [address]Policy Number: Effective (HP)Tel: (000) Date:2018-06-11 0000000 (WP) [id number] Name:[id number] [address] [place] [id number]: Social History Type Social History Date Location Description Tobacco smoking status Unknown if ever smoked [facility] ([id number]) Sex Assigned At Not on file [facility] ([id number]) Tobacco smoking status Current every day smoker 06-07-2018 - [facility] ([id number]) NHIS 06-08-2018 Cigarettes smoked 06-08-2018 [facility] ([id number]) current (pack per day) - Reported The following information is from the original human readable content Tobacco Use Types Packs/Day Years Used Date Never Assessed Sex Assigned at Date Recorded Not on file Job Start Date Occupation Industry Not on file Not on file Not on file Travel History Travel Start Travel End No recent travel history available. Tobacco Use Types Packs/Day Years Used Date Current Every Day Smoker Smokeless Tobacco: Never Used Alcohol Use Drinks/Week oz/Week Comments Not Currently Sex Assigned at Date Recorded Not on file Job Start Date Occupation Industry Not on file Not on file Not on file Tobacco Use Types Packs/Day Years Used Date Current Every Day Smoker Cigarettes 0.5 Smokeless Tobacco: Never Used Sex Assigned at Date Recorded Not on file Job Start Date Occupation Industry Not on file Not on file Not on file No Social History Records Found Discharge Instructions AttachmentsThe following attachments cannot be sent through Care Everywhere. Viral Syndrome (Adult) ([place])documented in this encounter Assessments Diagnosis Viral syndrome - Primary Unspecified viral infection, in conditions classified elsewhere and of unspecified site documented in this encounter Summary Purpose DATE CREATED AUTHOR AUTHOR'S ORGANIZATION 06/25/2018 [facility] DATE CREATED AUTHOR AUTHOR'S ORGANIZATION 06/20/2018 [facility] DATE CREATED AUTHOR AUTHOR'S ORGANIZATION 06/16/2018 [facility] Family History No Family History Records Found Advance Directives No Advanced Directives Records Found Additional Source Comments FOR RECORDS PERTAINING TO PATIENTS WHO ARE OR HAVE BEEN ENROLLED IN A CHEMICAL DEPENDENCY/SUBSTANCE ABUSE PROGRAM, SOME INFORMATION MAY BE OMITTED. This clinical summary was aggregated from multiple sources. Caution should be exercised in using it in the provision of clinical care. This summary normalizes information from multiple sources, and as a consequence, information in this document may materially changethe coding, format and clinical context of patient data. In addition, data may be omittedin some cases. CLINICAL DECISIONS SHOULD BE BASED ON THE PRIMARY CLINICAL RECORDS. [facility] provides no warranty or guarantee of the accuracy or completeness of information in this document. UNRECOGNIZED CONTENT PROVIDED BELOW FOR UNRECOGNIZED SECTION Reason for Visit Reason Comments Rib Pain seent at urgent care yesterday and dx with pleurisy. started on z-pac, prednisone, alb inhaler and tessalon perles. Diagnosis Viral syndrome - Primary Unspecified viral infection, in conditions classified elsewhere and of unspecified site DATE CREATED AUTHOR AUTHOR'S ORGANIZATION 06/16/2018 [facility] DATE CREATED AUTHOR AUTHOR'S ORGANIZATION 06/20/2018 [facility] DATE CREATED AUTHOR AUTHOR'S ORGANIZATION 06/25/2018 [facility] UNRECOGNIZED CONTENT PROVIDED BELOW FOR UNRECOGNIZED SECTION INFORMATION SOURCE DATE CREATED AUTHOR AUTHOR'S ORGANIZATION 06/25/2018 [facility] DATE CREATED AUTHOR AUTHOR'S ORGANIZATION 06/20/2018 [facility] CREATED AUTHOR AUTHOR'S ORGANIZATION 06/16/2018 [facility]
== END ==
PROVIDERS: Family Provider Nurse Practitioner Family; PCP Nurse Practitioner Family; Referring Provider Surgery; Visit Provider Surgery
DX: R10.10 Upper abdominal pain, unspecified (principal); G89.18 Other acute postprocedural pain
CPT/HCPCS: 78226; A9537